=== PATIENT | male | born 1960 | race Caucasian/White ===

== ENCOUNTER 2022-06-26 15:37 | Emergency (ER) | payer OTHER ==
[2022-06-26 16:24] VITALS: BP 225/113
[2022-06-26 16:26] VITALS: BP 179/152
[2022-06-26 16:30] VITALS: BP 177/114
[2022-06-26] MEDS ORDERED: OMNI-PAC300 MG PO (16:40)
[2022-06-26] MEDS ORDERED: BACTRIM DS1 TAB PO (16:40)
[2022-06-26 17:00] VITALS: BP 179/129
[2022-06-26 17:01] VITALS: BP 179/129
== END 2022-06-26 17:07 | disposition home or self-care (01) | DRG 603 ==
LOC: ED 15:37
DX: L03.116 Cellulitis of left lower limb (principal); L03.032 Cellulitis of left toe; S99.922A Unspecified injury of left foot, initial encounter; W22.09XA Striking against other stationary object, initial encounter